=== PATIENT | female | born 1995 | race Two or more races ===

== ENCOUNTER 2019-10-01 14:17 | Emergency (ER) | payer OTHER ==
[~2019-10-01] VITALS: Ht 160 cm; Wt 59.0 kg
[2019-10-01] MEDS ORDERED: Ketorolac 30mg Inj IV ONE (14:45)
[2019-10-01 14:50] VITALS: BP 117/77
[2019-10-01 15:08] LABS: HEMATOCRIT 46.6 % (37.0-47.0); HEMOGLOBIN 16.2 G/DL (12.0-16.0); MEAN CORPUSCULAR VOLUME 89 FL (80-99); PLATELET COUNT 292 K/UL (150-450); RED BLOOD COUNT 5.26 M/UL (4.20-5.40); RED CELL DISTRIBUTION WIDTH 11.3 % (11.6-14.8); WHITE BLOOD COUNT 13.5 K/UL (4.8-10.8)
[2019-10-01 15:10] LABS: BASOPHILS % (AUTO) 0.5 % (0.0-2.0); EOSINOPHILS % (AUTO) 0.2 % (0.0-3.0); LYMPHOCYTES % (AUTO) 6.6 % (20.0-45.0); MONOCYTES % (AUTO) 4.5 % (1.0-10.0); NEUTROPHILS % (AUTO) 88.3 % (45.0-75.0)
[2019-10-01 15:18] LABS: APPEARANCE,URINE SLIGHTLY CLOUDY; BILIRUBIN, URINE NEGATIVE (NEGATIVE); COLOR,URINE ORANGE; GLUCOSE, URINE (UA) NEGATIVE (NEGATIVE); KETONES,URINE 2+ (NEGATIVE); LEUKOCYTE ESTERASE ,URINE 1+ (NEGATIVE); NITRITE,URINE NEGATIVE (NEGATIVE); PH,URINE 6 (4.5-8.0); PROTEIN,URINE 1+ (NEGATIVE); UROBILINOGEN,URINE 1 MG/DL (0.0-1.0)
[2019-10-01 15:36] LABS: ANION GAP 11 mmol/L (5-15); BLOOD UREA NITROGEN 14 mg/dL (7-18); CALCIUM 9.6 MG/DL (8.5-10.1); CARBON DIOXIDE 26 MMOL/L (21-32); CHLORIDE 102 MMOL/L (98-107); CREATININE 0.9 MG/DL (0.55-1.30); POTASSIUM 3.9 MMOL/L (3.5-5.1); SODIUM 139 MMOL/L (136-145)
[2019-10-01 15:40] LABS: ALANINE AMINOTRANSFERASE 21 U/L (12-78); ALBUMIN 4.4 G/DL (3.4-5.0); ALBUMIN/GLOBULIN RATIO 1.1 (1.0-2.7); ALKALINE PHOSPHATASE 73 U/L (46-116); ASPARTATE AMINO TRANSFERASE 21 U/L (15-37); BILIRUBIN,TOTAL 0.4 MG/DL (0.2-1.0)
--- NOTE | 2019-10-01 16:10 | Emergency Room Report ---
History of Present Illness General Chief Complaint: Nausea Source: Patient Present Illness HPI 23-year-old female with no significant past medical history other than recurrent posterior and frontal headache radiating to the neck here complaining of worsening headache in the past 3 days. Patient reports that she has history of migraine headache however reports that she has never been diagnosed with migraine headache by a physician. Denies photophobia, blurry vision at this time complains of nausea and few bouts of nonbloody emesis. Denies abdominal pain, diarrhea constipation. Denies fever and chills, meningismus, URI symptoms. Patient sitting comfortably with stable vital signs. Denies urinary symptoms, reports last menstrual period was 2 weeks ago and regular. Has been taking ibuprofen with minimal relief. Denies vaginal discharge, fever and chills pain. Reports that she denies tobacco use and alcohol intake. Is not currently taking any control or any other medication on a daily basis. Denies head injury Allergies: Coded Allergies: No Known Allergies (Unverified , 10/01/19) Patient History Past Medical History: see triage record Past Surgical History: unable to obtain Pertinent Family History: none Last Menstrual Period: 09/05/19 Now: No Immunizations: UTD Reviewed Nursing Documentation: PMH: Agreed; PSxH: Agreed Nursing Documentation-PMH Past Medical History: No History, Except For Hx Asthma: Yes Review of Systems All Other Systems: negative except mentioned in HPI Physical Exam Vital Signs Date Time Temp Pulse Resp B/P (MAP) Pulse Ox O2 Delivery O2 Flow Rate FiO2 10/01/19 14:21 97.9 92 16 117/77 (90) 99 Sp02 EP Interpretation: reviewed, normal General Appearance: no apparent distress, alert, GCS 15, non-toxic Head: normocephalic, atraumatic Eyes: bilateral eye normal inspection, bilateral eye PERRL ENT: hearing grossly normal, normal pharynx, no angioedema, normal voice Neck: full range of motion, supple, thyroid normal, no meningismus, no bony tend, supple/symm/no masses Respiratory: chest non-tender, lungs clear, normal breath sounds, no rhonchi, no respiratory distress, no retraction, no wheezing, speaking full sentences Cardiovascular #1: regular rate, rhythm, no edema, no murmur, normal capillary refill Cardiovascular #2: 2+ carotid (R), 2+ carotid (L) Gastrointestinal: normal bowel sounds, non tender, soft, non-distended, no guarding, no rebound Genitourinary: no CVA tenderness Musculoskeletal: back normal, no calf tenderness Neurologic: alert, motor strength/tone normal, oriented x3, sensory intact, responsive, speech normal Psychiatric: judgement/insight normal, memory normal, mood/affect normal, no suicidal/homicidal ideation Skin: no rash Lymphatic: no adenopathy Medical Decision Making PA Attestation All diagnoses and treatment plans were reviewed and discussed with my supervising physician Dr. Ramirez Diagnostic Impression: Primary Impression: Tension headache Additional Impression: UTI (urinary tract infection) ER Course 23-year-old female with no significant past medical history other than recurrent posterior and frontal headache radiating to the neck here complaining of worsening headache in the past 3 days. Patient reports that she has history of migraine headache however reports that she has never been diagnosed with migraine headache by a physician. Denies photophobia, blurry vision at this time complains of nausea and few bouts of nonbloody emesis. Denies abdominal pain, diarrhea constipation. Denies fever and chills, meningismus, URI symptoms. Patient sitting comfortably with stable vital signs. Denies urinary symptoms, reports last menstrual period was 2 weeks ago and regular. Has been taking ibuprofen with minimal relief. Denies vaginal discharge, fever and chills pain. Reports that she denies tobacco use and alcohol intake. Is not currently taking any control or any other medication on a daily basis. Denies head injury Ddx considered but are not limited to: Migraine headache with aura, migraine headache without aura, tension headache, cluster headache, TBI, subarachnoid hemorrhage Vital signs: are WNL, pt. is afebrile H&PE are most consistent with: Tension headache, incidental finding of UTI ORDERS: CBC, CMP, UA, tox, urine test ,Zofran, Macrobid, Excedrin, Motrin ER intervention: NS Bolus, Zofran, Pepcid, Toradol DISCHARGE: At this time pt. is stable for d/c to home. Will provide printed patient care instructions, and any necessary prescriptions. Care plan and follow up instructions have been discussed with the patient prior to discharge. Patient to follow-up with primary care provider possibly be referred to neurologist for proper diagnosis of possible migraine headache. Patient reports that she felt much better after administration of medication, advised not to smoke marijuana as it would exacerbate her nausea and vomiting. If worsening symptoms return to the emergency room Last Vital Signs Date Time Temp Pulse Resp B/P (MAP) Pulse Ox O2 Delivery O2 Flow Rate FiO2 10/01/19 14:21 97.9 92 16 117/77 (90) 99 Disposition: HOME, SELF-CARE Condition: Stable Scripts Nitrofurantoin Monohyd/M-Cryst* (MACROBID 100 MG*) 100 Mg Capsule 100 MG ORAL EVERY 12 HOURS for 7 Days, #14 CAP Prov: Carlyn Ma 10/01/19 Aspirin/Acetaminophen/Caffeine (EXCEDRIN MIGRAINE CAPLET) 1 Each Tablet 1 EACH PO DAILY, #20 TAB Prov: Calryn Ma 10/01/19 Ibuprofen* (MOTRIN*) 600 Mg Tablet 600 MG ORAL Q6H PRN for For Pain, #30 TAB Prov: Carlyn Ma 10/01/19 Ondansetron (Zofran) 4 Mg Tablet 4 MG ORAL Q6H PRN for Nausea & Vomiting, #14 TAB Prov: Carlyn Ma 10/01/19 Referrals: [facility],REFERRING (PCP) Patient Instructions: Nausea and Vomiting, Adult, Tension Headache, Easy-to- Read, Urinary Tract Infection Additional Instructions: Take medication as directed, follow-up with your primary care provider for referral to neurologist for proper diagnosis of migraine headache. At this time you are experiencing bilateral posterior headache with nausea and vomiting. Take medication as directed if worsening symptoms return to the emergency room Avoid marijuana smoke and use as it will exacerbate your symptoms Carlyn Ma Oct 01, 2019 16:10
[2019-10-01] MEDS ORDERED: ZOFRAN4 M1 ORAL (16:11)
[2019-10-01] MEDS ORDERED: EXCEDRIN MIGRA1 EAC1 PO (16:11)
[2019-10-01] MEDS ORDERED: IBUPROFEN600 MG ORAL (16:11)
[2019-10-01 16:22] VITALS: BP 122/80
[2019-10-01] MEDS ORDERED: NITROFURANTOIN100 M2 ORAL (16:28)
[2019-10-01 16:40] VITALS: BP 118/76
== END 2019-10-01 16:40 | disposition home or self-care (01) ==
LOC: EMR 14:56
DX: G44.209 Tension-type headache, unspecified, not intractable (principal); N39.0 Urinary tract infection, site not specified
CPT/HCPCS: 36415; 80053; 80307; 81003; 81025; 85025; 96361; 96374; 96375; G0480; J1885; J2405; J7030; S0028; Z7502; 99284

== ENCOUNTER 2020-01-31 14:55 | Emergency (ER) | payer OTHER ==
[~2020-01-31] VITALS: Ht 160 cm; Wt 59.0 kg
[~2020-01-31 14:55] MED LIST: EXCEDRIN MIGRA1 EAC1 PO; IBUPROFEN600 MG ORAL; NITROFURANTOIN100 M2 ORAL; ZOFRAN4 M1 ORAL
[2020-01-31 15:02] VITALS: BP 111/76
--- NOTE | 2020-01-31 15:13 | Emergency Room Report ---
History of Present Illness General Chief Complaint: Sore Throat Source: Patient Present Illness HPI 25-year-old female with no significant past medical history here complaining of 1 week of 10 out of 10 sore throat. Complains of pain radiating to ears. Denies any fever and chills, cough and congestion, abdominal pain, nausea vomiting diarrhea. Reports that she has been staying at home for the past month. Patient still working as a behavioral therapist over a month ago. Is sitting comfortably with stable vital signs. Denies . Allergies: Coded Allergies: No Known Allergies (Unverified , 10/01/19) COVID-19 Screening Contact w/high risk pt: No Recent Travel to affected area: No Experienced COVID-19 symptoms?: No Patient History Past Medical History: see triage record Past Surgical History: none Pertinent Family History: none Last Menstrual Period: 01/26/20 Now: No Immunizations: UTD Reviewed Nursing Documentation: PMH: Agreed; PSxH: Agreed Nursing Documentation-PMH Hx Asthma: Yes Review of Systems All Other Systems: negative except mentioned in HPI Physical Exam Vital Signs Date Time Temp Pulse Resp B/P (MAP) Pulse Ox O2 Delivery O2 Flow Rate FiO2 01/31/20 14:46 98.2 71 18 111/76 (88) 95 Room Air Sp02 EP Interpretation: reviewed, normal General Appearance: no apparent distress, alert, GCS 15, non-toxic Head: normocephalic, atraumatic Eyes: bilateral eye normal inspection, bilateral eye PERRL ENT: tonsillar swelling, pharyngeal erythema, tonsillar exudate Neck: normal inspection Respiratory: normal inspection Cardiovascular #1: normal inspection Gastrointestinal: normal inspection Musculoskeletal: normal inspection Neurologic: alert, oriented Psychiatric: normal inspection Skin: no rash Lymphatic: normal inspection Medical Decision Making PA Attestation All my diagnosis and treatment plans were reviewed ad discussed with my supervising physician Dr. Richardson Diagnostic Impression: Primary Impression: Strep pharyngitis ER Course 25-year-old female with no significant past medical history here complaining of 1 week of 10 out of 10 sore throat. Complains of pain radiating to ears. Denies any fever and chills, cough and congestion, abdominal pain, nausea vomiting diarrhea. Reports that she has been staying at home for the past month. Patient still working as a behavioral therapist over a month ago. Is sitting comfortably with stable vital signs. Denies . Ddx considered but are not limited to: Coronavirus, strep pharyngitis, URI, tonsillitis, peritonsillar abscess, influneza Vital signs: are WNL, pt. is afebrile H&PE are most consistent with: Strep pharyngitis ORDERS: Augmentin, ibuprofen ED INTERVENTIONS: None required at this time. DISCHARGE: At this time pt. is stable for d/c to home. Will provide printed patient care instructions, and any necessary prescriptions. Care plan and follow up instructions have been discussed with the patient prior to discharge. Take medication as directed, follow-up primary care doctor, if worsening symptoms return to the emergency room. Take medication as directed, follow-up with your primary doctor, you need to stay home for self quarantine due to Covid 19 precautions for 14 days Last Vital Signs Date Time Temp Pulse Resp B/P (MAP) Pulse Ox O2 Delivery O2 Flow Rate FiO2 01/31/20 15:02 98.2 71 18 111/76 95 Room Air Disposition: HOME, SELF-CARE Condition: Stable Scripts Ibuprofen* (MOTRIN*) 400 Mg Tablet 400 MG ORAL THREE TIMES A DAY, #30 TAB 0 Refills Prov: Carlyn Ma 01/31/20 Amoxicillin/Potassium Clav 875-125* (AUGMENTIN 875-125 TABLET*) 1 Each Tablet 1 TAB ORAL TWICE A DAY for 10 Days, #20 TAB Prov: Carlyn Ma 01/31/20 Referrals: [facility],REFERRING (PCP) Patient Instructions: Strep Throat Additional Instructions: Take medication as directed, follow-up with your primary care provider, if worsening symptoms return to emergency room. Take medication as directed, follow-up with your primary doctor, you need to stay home for self quarantine due to Covid 19 precautions for 14 days Carlyn Ma Jan 31, 2020 15:13
[2020-01-31] MEDS ORDERED: IBUPROFEN400 MG ORAL (15:14)
[2020-01-31] MEDS ORDERED: AUGMENTIN 875-1 EAC1 ORAL (15:14)
[2020-01-31 15:15] VITALS: BP 111/76
== END 2020-01-31 15:15 | disposition home or self-care (01) ==
LOC: EMR 15:12
DX: J02.0 Streptococcal pharyngitis (principal)
CPT/HCPCS: 99282

== ENCOUNTER 2020-02-17 13:18 | Emergency (ER) | payer OTHER ==
[~2020-02-17] VITALS: Ht 160 cm; Wt 59.0 kg
[~2020-02-17 13:18] MED LIST changes: +AUGMENTIN 875-1 EAC1 ORAL; +IBUPROFEN400 MG ORAL
[2020-02-17 13:20] VITALS: BP 116/56
[2020-02-17 13:45] VITALS: BP 124/70
[2020-02-17] MEDS ORDERED: ZITHROMAX250 MG ORAL (13:45)
[2020-02-17] MEDS ORDERED: IBUPROFEN400 MG ORAL (13:45)
--- NOTE | 2020-02-17 13:45 | Emergency Room Report ---
History of Present Illness General Chief Complaint: Sore Throat Source: Patient Present Illness HPI 24-year-old female with history of recurrences of strep throat here complaining of 2 days of right-sided sore throat rating at x10 with white patches. Patient was also seen [place] [facility] about a month ago for similar symptoms reports that she finished the antibiotic and felt better after. Denies any fever and chills , earache, cough or congestion, shortness of breath. Denies abdominal pain, nausea vomiting diarrhea. Has been staying home the whole time. Appears to be stable with stable vital signs. Denies . Allergies: Coded Allergies: No Known Allergies (Unverified , 10/01/19) COVID-19 Screening Contact w/high risk pt: No Recent Travel to affected area: No Experienced COVID-19 symptoms?: No Patient History Past Medical History: see triage record Past Surgical History: none Pertinent Family History: none Last Menstrual Period: 4-9 Now: No Immunizations: UTD Reviewed Nursing Documentation: PMH: Agreed; PSxH: Agreed Nursing Documentation-PMH Hx Asthma: Yes Review of Systems All Other Systems: negative except mentioned in HPI Physical Exam Vital Signs Date Time Temp Pulse Resp B/P (MAP) Pulse Ox O2 Delivery O2 Flow Rate FiO2 02/17/20 13:20 98.2 71 20 116/56 (76) 97 Room Air Sp02 EP Interpretation: reviewed, normal General Appearance: no apparent distress, alert, GCS 15, non-toxic Head: normocephalic, atraumatic Eyes: bilateral eye normal inspection, bilateral eye PERRL ENT: tonsillar swelling, tonsillar exudate Neck: full range of motion, supple/symm/no masses Respiratory: chest non-tender, lungs clear, normal breath sounds, speaking full sentences Cardiovascular #1: regular rate, rhythm, no edema Gastrointestinal: non tender, soft Rectal: deferred Musculoskeletal: back normal Neurologic: alert, oriented Psychiatric: judgement/insight normal, memory normal, mood/affect normal, no suicidal/homicidal ideation Skin: no rash Lymphatic: normal inspection Medical Decision Making PA Attestation All diagnoses and treatment plans were reviewed and discussed with my supervising physician Dr. Santiago Diagnostic Impression: Primary Impression: Strep pharyngitis ER Course 24-year-old female with history of recurrences of strep throat here complaining of 2 days of right-sided sore throat rating at x10 with white patches. Patient was also seen [place] [facility] about a month ago for similar symptoms reports that she finished the antibiotic and felt better after. Denies any fever and chills , earache, cough or congestion, shortness of breath. Denies abdominal pain, nausea vomiting diarrhea. Has been staying home the whole time. Appears to be stable with stable vital signs. Denies . Ddx considered but are not limited to: Coronavirus, strep pharyngitis, URI, tonsillitis, peritonsillar abscess, influneza Vital signs: are WNL, pt. is afebrile H&PE are most consistent with: Strep pharyngitis ORDERS: Azithromycin, ibuprofen ED INTERVENTIONS: None required at this time. DISCHARGE: At this time pt. is stable for d/c to home. Will provide printed patient care instructions, and any necessary prescriptions. Care plan and follow up instructions have been discussed with the patient prior to discharge. With primary doctor for recurrences of strep throat, if worsening symptoms return to emergency room Last Vital Signs Date Time Temp Pulse Resp B/P (MAP) Pulse Ox O2 Delivery O2 Flow Rate FiO2 02/17/20 13:20 98.2 71 20 116/56 97 Room Air Disposition: HOME, SELF-CARE Condition: Stable Scripts Ibuprofen* (MOTRIN*) 400 Mg Tablet 400 MG ORAL THREE TIMES A DAY, #30 TAB 0 Refills Prov: Carlyn Ma 02/17/20 Azithromycin* (ZITHROMAX*) 250 Mg Tablet 250 MG ORAL DAILY, #6 TAB 0 Refills Take two tables once daily for 1 day, then one tablet once daily for 4 days. Prov: Carlyn Ma 02/17/20 Patient Instructions: Strep Throat Additional Instructions: Take medication as directed, follow-up with your primary doctor for recurrences of strep throat, if worsening symptoms return to the emergency room Carlyn Ma February 17, 2020 13:45
== END 2020-02-17 13:45 | disposition home or self-care (01) ==
LOC: EMR 13:45
DX: J02.0 Streptococcal pharyngitis (principal); J45.909 Unspecified asthma, uncomplicated
CPT/HCPCS: 99282